=== PATIENT | male | born 1980 | race Caucasian/White ===

== ENCOUNTER → 2022-07-25 | Outpatient (CLI) | payer MEDICAID, SELFPAY ==
--- NOTE | 2022-07-25 15:20 | RAD_ITS ---
EXAM: XR LUMBOSACRAL SPINE, 2 OR 3 VIEWS CLINICAL INDICATION: BACK PAIN TECHNIQUE: Frontal and lateral views of the lumbar spine and sacrum. This report was created using [employer] report [employer] technology. COMPARISON: None. FINDINGS: VERTEBRAE: Unremarkable. Preserved vertebral body height. No fracture. No spondylolisthesis. Preservation of the normal lumbar lordosis. No significant facet arthropathy. DISC SPACES: No acute findings. Disc spaces are maintained. GASTROINTESTINAL TRACT: Unremarkable as visualized. Included bowel gas pattern is non-obstructive. RAD/Lumbar Spine 2 or 3 Views IMPRESSION: No evidence of lumbar spinal fracture or spondylolisthesis. Electronically Signed: Justo Harris MD at 16:12 EST ,
--- NOTE | 2022-07-25 15:30 | RAD_ITS ---
EXAM: XR THORACIC SPINE, 3 VIEWS CLINICAL INDICATION: BACK PAIN TECHNIQUE: Frontal, lateral and swimmer''s views of the thoracic spine. This report was created using [employer] report generation technology. COMPARISON: None. FINDINGS: VERTEBRAE: There is endplate spondylosis of the vertebral body. Preserved vertebral body height. No fracture. Preservation of the normal thoracic kyphosis. No significant facet arthropathy. DISC SPACES: Loss of intervertebral disc height. RAD/Thoracic Spine 3 Views IMPRESSION: Mild degenerative findings in the thoracic spine. Electronically Signed: Sung Johnson MD at 16:53 EST ,
== END | disposition home or self-care (01) ==
LOC: RAD 15:18
PROVIDERS: Referring Provider Anesthesiology Pain Medicine; Visit Provider Anesthesiology Pain Medicine
DX: M96.1 Postlaminectomy syndrome, not elsewhere classified (principal); M54.9 Dorsalgia, unspecified
CPT/HCPCS: 72072; 72100

== ENCOUNTER → 2022-07-25 | Outpatient (CLI) | payer MEDICAID, SELFPAY ==
[2022-07-25 16:47] LABS: Amphetamine Urine VISTA NEGATIVE (<1000 ng/mL); Barbiturate Urine VISTA NEGATIVE (< 200 ng/mL); Benzodiazepine Urine VISTA NEGATIVE (< 200 ng/mL); Cocaine Urine VISTA NEGATIVE (< 300 ng/mL); Ecstacy Urine VISTA NEGATIVE (< 500 ng/mL); Methadone Urine VISTA NEGATIVE (< 300 ng/mL); PCP Urine VISTA NEGATIVE (< 25 ng/mL); THC Urine VISTA NEGATIVE (< 50 ng/mL); Vista UDS pH Range 6
== END | disposition home or self-care (01) ==
LOC: LAB 16:12
PROVIDERS: Referring Provider Anesthesiology Pain Medicine; Visit Provider Anesthesiology Pain Medicine
DX: F11.20 Opioid dependence, uncomplicated (principal); M96.1 Postlaminectomy syndrome, not elsewhere classified; M54.9 Dorsalgia, unspecified
CPT/HCPCS: 72072; 72100; 80307

== ENCOUNTER 2022-08-01 17:45 | Outpatient (RCR) | payer MEDICAID, SELFPAY ==
--- NOTE | 2022-08-01 18:47 | HP.PTEVAL ---
Patient's Visit Information KRIS TORRES is a 41 year old M referred to Physical Therapy by Dr. Latoya Gilbert MD with a diagnosis of leg pain, back pain. Date of Evaluation: 08/01/22 Physical Therapist: Preston Blevins, HARIST, OCS, CSCS - Visit Plan Frequency: 1x/Week Duration: 4-6 Weeks Plan: weekly(pt choice due to busy schedule) x 4-6 for one hour sessions...please work on. 1. ensure ROM ex given at home are tolerated and progress them, add stretches of pirifromis, ITB and get aggressive with latstretching and yoga flows and progress HEP, mobs to increase lumbar extension. 2. STM and fascial release to posterior spinal and upper hip musculature. 3. See if TENS helpful for pain - Subjective LBP pain 12/02 everywhere neck to toes. Had spinal surgery once which helped as he could not stand up due to LB. Had lung CA 5 yrs ago. Pain has been there for many years since spinal surgery whcih did not get rid of pain. Back getting stiff again for last several years. 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 Dr. Gilbert has him on pain meds which helps a little bit. Is early on in his treatment with this pain doctor. Sleep interrupted and he does not sleep good. Works without too much bother during the day. 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 Hobbies include 4 wheeling riding. Fishing and hunting. Hard to drag gimenez out. Basic ADLs are OK. Spent 12 yrs riding bulls. Broke everything. - Pain Back and legs Pain Intensity (Out of 10): 5 Pain Intensity Range: 5, 8 Comment: moving wrong is worse(bending) - Objective L scapular muscles have hole in them from chemo and much scarring present. Pt posture is hunched overand anterior scapula until cued. LB AROM ext max limited and painful centrally, flexion is mild limited, SB mod limited. Poor pelvic movement as patients entire pelvis moves with rotation attempted. quad and psoas max tight. piriformis and ITB mod tight. reflexes 2/3 patella and achilles. sensation WNL to gross light touch LE. US AROM WFL, slow and end range limitations with elevation. strength LE 5/5 except hip extension 4 and abduction 4+. Stiff and sore throughout posterior pelvis and LB in soft tissue. - SLR. - slump. - instability. - Balance/Special Test Scores Oswestry Low Back Score: 15 - Goals Goal 1:: I appropriate stretch adn strength to minimze future problems. Goal Time Frame: 4-6 Weeks Goal 2:: Pt find out if TENS or massage is helpful for his situation Goal Time Frame: 4-6 Weeks Goal 3:: Patient pain 3/10 at worst and 60% better overall. Goal Time Frame: 4-6 Weeks Goal 4:: oswestry 5 or less Goal Time Frame: 4-6 Weeks - Rehabilitation Potential Physical Therapy Diagnosis: Posterior fascial and soft tissue pain and stiffness in a very active individual Rehabilitation Potential: Fair - Anticipated Interventions Patient/Client Instruction: Educate patient on: Condition, Plan of Care For the Purpose of:: To decrease pain, To increase ROM, To improve muscle performance and motor function, To improve ability of physical actions for home/community/work/leisure Therapeutic Exercise to Include: Strength training, Postural training, Flexibilty training, Passive ROM, Active ROM For the Purpose of:: To decrease pain, To increase ROM, To improve muscle performance and motor function, To improve gait and locomotor functions Manual Therapy Techniques to Include: Mobilization, Passive ROM, Soft tissue mobilization For the Purpose of:: To decrease pain, To increase ROM, To improve muscle performance and motor function TENS: Yes For the Purpose of:: To decrease pain Thank you for the opportunity to evaluate your patient. For Medicare and Medicare HMO plans, please review the plan of care and approve it. It will need to be FAXED BACK to us at [phone] for Medicare purposes. For Medicare only, by signing this I certify the plan of care. Please let me know if there are questions or concerns regarding this plan of care. Physician Signature: Date:
--- NOTE | 2022-10-02 08:52 | HP.PTDCNRP_ITS ---
KRIS TORRES was seen in my office for initial evaluation on 08/01/22. The following Plan of Care was established for this patient: Initial Frequency: 1x/Week Initial Duration: 4-6 Weeks Patient/Client Instruction: Educate patient on: Condition, Plan of Care For the Purpose of:: To decrease pain, To increase ROM, To improve muscle performance and motor function, To improve ability of physical actions for home/community/work/leisure Therapeutic Exercise to Include: Strength training, Postural training, Flexibilty training, Passive ROM, Active ROM For the Purpose of:: To decrease pain, To increase ROM, To improve muscle perfo rmance and motor function, To improve gait and locomotor functions Manual Therapy Techniques to Include: Mobilization, Passive ROM, Soft tissue mobilization For the Purpose of:: To decrease pain, To increase ROM, To improve muscle performance and motor function TENS: Yes For the Purpose of:: To decrease pain This patient was last seen in our office 08/01/22. Pertinent comments regarding their Physical therapy will appear below: Pt seen for initial evaluation and POC established however he did not schedule or attend any further visits. at this point, I will discontinue due to nonattendance. At this point I will be discontinuing this patient from physical therapy. I would be happy to see this patient again in the future if found appropriate by the physician. Thank you! Preston Blevins, DPT, OCS, CSCS Balance/Gait/Functional tests - Balance/Special Test Scores Oswestry Low Back Score: 15
== END 2022-08-01 19:00 | disposition home or self-care (01) ==
LOC: PT 17:45
PROVIDERS: Referring Provider Anesthesiology Pain Medicine; Visit Provider Anesthesiology Pain Medicine
DX: M54.9 Dorsalgia, unspecified (principal); M79.606 Pain in leg, unspecified
CPT/HCPCS: 97110; 97162